=== PATIENT | female | born 1950 | race Caucasian/White ===

== ENCOUNTER 2025-02-22 23:21 | Emergency (ER) | payer MEDICARE, OTHER ==
[~2025-02-22] VITALS: Ht 165.1 cm; Wt 63.6 kg
[~2025-02-22 23:21] MED LIST: ATOR10TA PO; BETH5 PO; CHOL500013 PO; CLON-595 PO; LEVE-71 PO; LEVO25TA9 PO; LISI30TA4 PO; MIRT-149 PO; OLAN10TA74 PO; PANT-31 PO; QUET25TA PO; TAMS0.4C94 PO
[2025-02-23 00:38] VITALS: TEMP 97.4
[2025-02-23 04:00] VITALS: BP 122/59; PULSE 74; RESP 20; O2SAT 98
== END 2025-02-23 04:29 ==
LOC: EMS 23:21
DX: T83.021A Displacement of indwelling urethral catheter, initial encounter (principal); I10 Essential (primary) hypertension; E78.5 Hyperlipidemia, unspecified; F03.90 Unspecified dementia, unspecified severity, without behavioral disturbance, psychotic disturbance, mood disturbance, and anxiety; G40.909 Epilepsy, unspecified, not intractable, without status epilepticus; Z79.899 Other long term (current) drug therapy
CPT/HCPCS: 51702; 99284; Z7502